=== PATIENT | male | born 1960 | race Caucasian/White ===

== ENCOUNTER 2017-12-18 00:42 | Outpatient (CLI) | payer OTHER, SELFPAY ==
--- NOTE | 2017-12-18 10:20 | DI.US_ITS ---
SYMPTOMS/DIAGNOSIS: CHRONIC HEP C, CIRRHOSIS, DETERMINE HCC ABDOMINAL ULTRASOUND: Routine examination. No priors. The aorta and IVC are unremarkable. The liver is normal in size. The liver has a coarsened echotexture with a lobulated contour suspicious for hepatic cirrhosis. The portal vein is normal in flow. There are mobile stones seen within the gallbladder. No gallbladder thickening or pericholecystic fluid is seen. The gallbladder measures 5.7 cm in diameter. No pericholecystic fluid is seen. The common duct is within normal limits at .3 cm. The pancreas is not visualized on this examination due to overlying bowel. The spleen and kidneys are unremarkable. IMPRESSION: 1. Findings suspicious for hepatic cirrhosis. No evidence of a hepatic mass. 2. Cholelithiasis with hydropic gallbladder. No biliary ductal dilatation.
== END 2017-12-18 01:02 ==
PROVIDERS: PCP Nurse Practitioner Adult Health; Visit Provider Nurse Practitioner Adult Health
DX: B18.2 Chronic viral hepatitis C (principal); K74.60 Unspecified cirrhosis of liver; K80.20 Calculus of gallbladder without cholecystitis without obstruction
CPT/HCPCS: 76700

== ENCOUNTER 2020-10-21 10:11 | Outpatient (CLI) | payer OTHER, SELFPAY ==
--- NOTE | 2020-10-21 09:30 | DI.RAD_ITS ---
Exam(s) XR SHOULDER LT COMPLETE 2+V EXAM: XR SHOULDER LT COMPLETE 2+V CLINICAL HISTORY: left shoulder pain. TECHNIQUE: 2D digital imaging was performed. COMPARISON: CR,DX XR SHOULDER MIN 2V BILAT-M2 from 07/10/2019 CR,DX XR SHOULDER MIN 2V BILAT-M2 from 07/10/2019 CR XR SHOULDER RT COMPLETE 2+V from 10/21/2020 FINDINGS: There is no evidence of fracture or dislocation. There are advanced osteoarthritic degenerative garcia ges in the glenohumeral joint with [id number] narrowing. Also prominent osteophyte on the inferior articular surface of the humeral head. No soft tissue calcifications. Mild degenerative changes in the AC joint. IMPRESSION: Advanced degenerative changes again noted in the glenohumeral joint. DATA REPOSITORY: RADIATION DOSE DELIVERED:
--- NOTE | 2020-10-21 09:30 | DI.RAD_ITS ---
Exam(s) XR SHOULDER RT COMPLETE 2+V EXAM: XR SHOULDER RT COMPLETE 2+V CLINICAL HISTORY: right shoulder pain. TECHNIQUE: 2D digital imaging was performed. COMPARISON: CR,DX XR SHOULDER MIN 2V BILAT-M2 from 07/10/2019 FINDINGS: Two views of the right shoulder reveal no evidence of acute fracture or dislocation. There is advanc ed osteoarthritic narrowing of the glenohumeral joint, similar to the opposite side. This is bone-on -bone. Also large osteophyte on the inferior articular surface of the humeral head. There is a calc ified intra-articular body measuring 7 x 5 millimeters medial to the humeral neck.. Mild degenerativ e changes in the AC joint. IMPRESSION: Advanced degenerative narrowing of the glenohumeral joint, DATA REPOSITORY: RADIATION DOSE DELIVERED:
== END 2020-10-21 10:12 | disposition home or self-care (01) ==
LOC: DIORS 10:11
PROVIDERS: PCP Nurse Practitioner Adult Health; Referring Provider Nurse Practitioner Adult Health; Visit Provider Student in an Organized Health Care Education/Training Program
DX: M25.511 Pain in right shoulder (principal); M25.512 Pain in left shoulder; M19.011 Primary osteoarthritis, right shoulder; M19.012 Primary osteoarthritis, left shoulder
CPT/HCPCS: 73030